=== PATIENT | female | born 1955 | race Caucasian/White ===

== ENCOUNTER 2019-12-21 22:41 | Emergency (ER) | payer OTHER ==
[~2019-12-21] VITALS: Ht 154.9 cm; Wt 59.9 kg
[2019-12-21 23:12] VITALS: Ht 154.9 cm; Wt 59.9 kg
[2019-12-22 01:21] LABS: BASOPHIL % 0.7 % (0-2); PLATELET COUNT 313 x10^3mcL (130-400)
[2019-12-22 01:26] LABS: CALCIUM 8.5 mg/dL (8.5-10.1); CARBON DIOXIDE 26.6 mmol/L (21-32); CHLORIDE SERUM 106 mmol/L (98-107); CREATININE SERUM 0.7 mg/dL (0.6-1.0); GFR1 > 60 mL/min; GLUCOSE SERUM 104 mg/dL (74-106); POTASSIUM SERUM 3.8 mmol/L (3.5-5.1); SODIUM SERUM 138 mmol/L (136-145)
[2019-12-22 01:29] LABS: ALBUMIN 3.4 g/dL (3.4-5.0); ALKALINE PHOSPHATASE 96 U/L (46-116); ALT/SGPT 24 U/L (14-59); AMYLASE 62 U/L (25-115); AST/SGOT 17 U/L (15-37); BILIRUBIN TOTAL 0.34 mg/dL (0.20-1.00); LIPASE 157 IU/L (73-393); TOTAL PROTEIN, SERUM 7.4 g/dL (6.4-8.2)
[2019-12-22 02:30] VITALS: BP 93/63
== END 2019-12-22 02:30 | disposition home or self-care (01) ==
LOC: ED 22:41
PROVIDERS: Emergency Medicine
DX: R10.9 Unspecified abdominal pain (principal); R50.9 Fever, unspecified; Z90.89 Acquired absence of other organs
CPT/HCPCS: 36415; J1885